=== PATIENT | male | born 1950 | race Caucasian/White ===

== ENCOUNTER 2020-04-20 09:36 | Emergency (ER) | payer MEDICARE, OTHER ==
[~2020-04-20] VITALS: Ht 160 cm; Wt 74.8 kg
[2020-04-20 10:07] LABS: ABSOLUTE BASOPHILS 0.1 thou/uL (0.0-0.2); ABSOLUTE EOSINOPHILS 0.1 thou/uL (0.0-0.7); ABSOLUTE LYMPHOCYTES 2.5 thou/uL (0.8-5.3); ABSOLUTE MONOCYTES 0.6 thou/uL (0.0-1.2); ABSOLUTE NEUTROPHILS 3.4 thou/uL (1.6-8.1); BASOPHILS 0.9 %; EOSINOPHILS 1.8 %; HEMATOCRIT 46.5 % (42.0-52.0); HEMOGLOBIN 15.7 gm/dL (14.0-18.0); LYMPHOCYTES 37.2 %; MCH 31.5 pg (26.0-34.0); MCHC 33.9 g/dL (28.0-37.0); MCV 92.9 fL (80.0-100.0); MONOCYTES 8.9 %; MPV 7.3 fl. (7.2-11.1); NUCLEATED RBCS 0 /100WBC; PLATELET COUNT* 288 thou/uL (150-400); POLYS 51.2 %; RBC 5.01 mil/uL (4.50-6.00); RDW-CV 13.2 % (10.5-14.5); WBC 6.7 thou/uL (4.0-11.0)
[2020-04-20 10:13] LABS: CALCIUM 8.6 mg/dL (8.5-10.1); CREATININE 1.3 mg/dL (0.6-1.3); POTASSIUM 4.4 mmol/L (3.5-5.1)
[2020-04-20 10:17] LABS: ALBUMIN 3.8 g/dL (3.4-5.0); TOTAL BILIRUBIN 0.7 mg/dL (<0.1-1.0); TOTAL PROTEIN 7.2 g/dL (6.4-8.2)
[2020-04-20 10:54] LABS: URINE BILIRUBIN NEGATIVE (Negative); URINE BLOOD 3+ (Negative); URINE CLARITY CLEAR; URINE COLOR YELLOW; URINE GLUCOSE-RANDOM NEGATIVE (Negative); URINE KETONES NEGATIVE (Negative); URINE LEUKOCYTES-REFLEX NEGATIVE (Negative); URINE NITRITE-REFLEX NEGATIVE (Negative); URINE PROTEIN 1+ (Negative); URINE SPECIFIC GRAVITY >= 1.030 (1.005-1.030); URINE UROBILINOGEN 0.2 E.U./dl (0.2-1.0)
[2020-04-20 11:23] LABS: BACTERIA-REFLEX 1-9 Few /HPF (None Seen); CASTS None Seen /LPF (None Seen); CRYSTALS None Seen /LPF (None Seen); MUCUS None Seen strn/LPF (None Seen); SQUAMOUS 4-10 Moderate /LPF (0-3); URINE RBC >20 Many /HPF (0-2); URINE WBC-REFLEX 0-5 Rare /HPF (0-5)
[2020-04-20] MEDS ORDERED: FLOMAX0.4 MG PO (11:28)
[2020-04-20] MEDS ORDERED: CIPROFLOXACIN500 M1 PO (11:28)
[2020-04-20] MEDS ORDERED: NORCO 5-325 TA1 EAC2 PO (11:28)
[2020-04-20] MEDS ORDERED: ZOFRAN ODT4 MG PO (11:28)
[2020-04-20 12:15] VITALS: BP 129/75
--- NOTE | 2020-04-20 15:43 | EKG ---
[place] [address] ELECTROCARDIOGRAM REPORT Name: LADONNA LEPE Room: [facility]#: [id number] Admission: 04/20/20 Attend Phys: Discharge: 04/20/20 Date of : 46 Date of Service: 04/20/20 1001 Report #: [id number] THIS REPORT FOR: //name// [facility] ED Test Date: 2020-04-20 Test Time: 10:01:27 Pat Name: LADONNA LEPE Department: Room: Gender: [employer] Worker: [facility] : 1950 Requested By: Jones Mejia Order Number: [id number] MD: Irving Ho Measurements Intervals [place] Rate: 49 P: -33 MT: 195 QRS: 19 QRSD: 85 T: 46 QT: 441 QTc: 399 Interpretive Statements Sinus bradycardia No previous ECG available for comparison Electronically Signed On 04-20-2020 15:43:06 AIX ARCHITECT by Irving Ho [email or web address] <ELECTRONICALLY SIGNED> By: Kaci Ho MD, [facility] 04/20/20 1543 00 00 Kaci Ho MD, FACC /EPI
== END 2020-04-20 12:15 | disposition home or self-care (01) ==
LOC: M.ERS 09:36
PROVIDERS: Emergency Medicine
DX: N13.2 Hydronephrosis with renal and ureteral calculous obstruction (principal)